=== PATIENT | female | born 1980 | race Caucasian/White ===

== ENCOUNTER → 2016-06-21 | Outpatient (CLI) | payer OTHER ==
--- NOTE | 2016-06-21 15:45 | US ---
Diagnostic Left Breast Ultrasound History: 35-year-old breast-feeding patient with 12 o'clock left breast lump. Comparison: Screening mammograms November 07, 2014. Family history of breast cancer, thyroid cancer in 2011, with iodine therapy. Technique: Limited bautista-scale and Doppler ultrasound in the region of palpable abnormality is perfor med. Real-time sonography is performed by the radiologist. Findings: Directed physical exam is performed, with a subtle ridge of tissue in the 12 o'clock left breast in the area of interest. Ultrasound of the region shows normal breast parenchyma. The patien t's lump may correspond to a superficial fat lobule. No cystic or solid masses or areas of microsoft bi architect ural distortion are identified in the area of interest, with scattered tiny simple cysts in the breas t parenchyma unrelated to the palpable lump. Impression: BI-RADS 1: Negative. Recommendation: Clinical follow up is recommended for palpable lump with no sonographic correlate. If the lump enlarges or a new lump develops, repeat ultrasound. Findings and recommendations were discussed with the patient. [facility] will send a result letter to the patient.
== END ==
LOC: CIMAGING 13:38
PROVIDERS: ATTEND Nurse Practitioner
DX: N63 Unspecified lump in breast (principal)
CPT/HCPCS: 76641-PO

== ENCOUNTER → 2016-08-31 | Outpatient (CLI) | payer OTHER | LOC: CIMAGING 12:49 | PROVIDERS: ATTEND Nurse Practitioner | DX: R10.11 Right upper quadrant pain (principal); R10.31 Right lower quadrant pain; N83.201 Unspecified ovarian cyst, right side | CPT/HCPCS: 76856-PO ==

== ENCOUNTER → 2016-09-02 | Outpatient (CLI) | payer OTHER | LOC: CIMAGING 08:10 | PROVIDERS: ATTEND Nurse Practitioner | DX: R10.11 Right upper quadrant pain (principal); R10.31 Right lower quadrant pain | CPT/HCPCS: 76700-PO ==

== ENCOUNTER → 2017-09-22 | Outpatient (CLI) | payer OTHER | LOC: CIMAGING 08:45 | PROVIDERS: ATTEND Nurse Practitioner | DX: R06.02 Shortness of breath (principal) | CPT/HCPCS: 71046-PO ==

== ENCOUNTER → 2018-06-20 | Outpatient (CLI) | payer BC | LOC: FIMAGING 19:34 | PROVIDERS: ATTEND Nurse Practitioner | DX: M51.26 Other intervertebral disc displacement, lumbar region (principal); M51.36 Other intervertebral disc degeneration, lumbar region ==

== ENCOUNTER → 2018-06-28 | Outpatient (CLI) | payer BC | LOC: BRMIMAGING 07:42 | PROVIDERS: ATTEND Internal Medicine | DX: R07.9 Chest pain, unspecified (principal); R10.13 Epigastric pain | CPT/HCPCS: 76705-PO ==

== ENCOUNTER → 2018-07-02 | Outpatient (CLI) | payer BC | LOC: BRMIMAGING 13:53 | PROVIDERS: ATTEND Nurse Practitioner | DX: Z12.31 Encounter for screening mammogram for malignant neoplasm of breast (principal) ==

== ENCOUNTER → 2018-07-23 | Outpatient (CLI) | payer BC ==
[~2018-07-23] MED LIST: IOPAMIDOL (ISOVUE 370) 100 ML BTL IV ONE
== END ==
LOC: FIMAGING 13:41
PROVIDERS: ATTEND Internal Medicine Cardiovascular Disease
DX: R07.9 Chest pain, unspecified (principal)
CPT/HCPCS: Q9967